=== PATIENT | male | born 1995 | race Hispanic/Latino ===

== ENCOUNTER 2017-02-27 11:14 | Emergency (ER) | payer SELFPAY ==
[2017-02-27 11:33] VITALS: BP 137/61
--- NOTE | 2017-02-27 11:54 | Emergency Department Report ---
Chief Complaint: Nausea/Vomiting/Diarrhea Stated Complaint: VOMITING - HPI History of Present Illness: This is a 21-year-old male nontoxic, well nourished in appearance, no acute signs of distress presents to the ED with c/o of right ear pain, sore throat and vomiting x 1 day. Patient desscribes vomit as dark and might have seen blood. Patient denies any chest pain, shortness of breath, fever, chills, abdominal pain, back pain, stiff neck or headache. - Exam Vital Signs: Vital Signs 02/27/17 11:28 Temperature 98.4 F Pulse Rate 62 Respiratory 18 Rate Blood Pressure 137/61 O2 Sat by Pulse 97 Oximetry Physical Exam: GENERAL: The patient is a well-developed, well-nourished female in no apparent distress. Patient is alert and acting appropriately for age. Alert and oriented 3, no apparent distress, normal gait, atraumatic. HEENT: Head is normocephalic and atraumatic. PERRL, Extraocular muscles are intact. Pupils are equal, round, and reactive to light and accommodation. Nares appeared normal. Mouth is well hydrated and without lesions. Mucous membranes are moist. Posterior pharynx clear of any exudate or lesions. Mouth is well hydrated and without lesions. Tonsils not erythematous or swollen. Uvula midline. Tongue elevated. Mucous members are moist. Posterior pharynx clear, no exudate or lesions. Patent airways. LUNGS: Clear to auscultation. Non labor breathing. No intercostal retractions. Symmetrical with respiration, no wheezing, no rales, or crackles. HEART: Regular rate and rhythm without murmur, rubs or gallops. No reproducible. S1, S2 present, regular rate and rhythm without murmur, no rubs, no gallops. ABDOMEN: Soft, nontender, and nondistended. Positive bowel sounds. No hepatosplenomegaly was noted. No guarding or rebound tenderness, negative epigastric bruit. Negative psoas sign, negative sheldon sign, negative McBurneys sign MSE screening note: Focused history and physical exam performed. Due to findings the following was ordered: 1- This initial assessment/diagnostic orders/clinical plan/ treatment(s) is/are subject to change based on pt's health status, clinical progression and re- assessment by fellow clinical providers in the ED. Further treatment and workup at subsequent clinical provers discretion. Patient/guardians urged not to elope from ED as their condition may be serious if not clinically assessed and managed. 2-UA, cbc, cmp, lipase, amylase ED Disposition for MSE Condition: Stable
[2017-02-27 12:27] LABS: Basophils % (Auto) 0.8 % (0.0-1.8); Eosinophils % (Auto) 1.3 % (0.0-4.3); Hematocrit 45.1 % (35.5-45.6); Hemoglobin 15.1 gm/dl (11.8-15.2); Mean Corpuscular HGB Conc 34 % (32-34); Mean Corpuscular Hemoglobin 30 pg (28-32); Mean Corpuscular Volume 89 fl (84-94); Platelet Count 255 K/mm3 (140-440); Red Cell Distribution Width 13.4 % (13.2-15.2); White Blood Count 6.3 K/mm3 (4.5-11.0)
[2017-02-27 12:47] LABS: Alanine Aminotransferase 25 units/L (7-56); Albumin 4.4 g/dL (3.9-5); Albumin/Globulin Ratio 1.6 %; Alkaline Phosphatase 66 units/L (35-129); Amylase 81 units/L (27-131); Anion Gap 14 mmol/L; BUN/Creatinine Ratio 11; Blood Urea Nitrogen 11 mg/dL (9-20); Calcium 9.5 mg/dL (8.4-10.2); Carbon Dioxide 30 mmol/L (22-30); Chloride 100.2 mmol/L (98-107); Glucose 96 mg/dL (75-100); Lipase 37 units/L (13-60); Potassium 4.5 mmol/L (3.6-5.0); Sodium 140 mmol/L (137-145); Total Protein 7.1 g/dL (6.3-8.2)
== END 2017-02-27 15:50 | disposition left against medical advice (07) ==
LOC: ED 11:14
DX: R11.10 Vomiting, unspecified (principal); Z53.21 Procedure and treatment not carried out due to patient leaving prior to being seen by health care provider
CPT/HCPCS: 36415; 80053; 82150; 83690; 85025